=== PATIENT | male | born 1995 | race Caucasian/White ===

== ENCOUNTER 2016-04-16 09:20 | Emergency (ER) | payer BC, OTHER ==
[2016-04-16 09:39] VITALS: TEMP 98; BMI 23.7
[2016-04-16] MEDS ORDERED: ONDANSETRON 4 MG/2 ML VIAL IVPUSH ONE (09:51)
[2016-04-16] MEDS ORDERED: SODIUM CHLORIDE 1,000 ML IV STA (09:51)
[2016-04-16] MEDS ORDERED: DICYCLOMINE HCL 10 MG CAPSULE PO ONE (09:51)
[2016-04-16] MEDS ORDERED: ONDANSETRON 4 MG/2 ML VIAL ONE (10:10)
[2016-04-16] MEDS ORDERED: DICYCLOMINE HCL 10 MG CAPSULE ONE (10:10)
[2016-04-16 10:53] LABS: BASOPHIL 0.2 % (0-2.0); EOSINOPHIL 0.1 % (0-4.5); MCH 29.3 pg (25.7-33.7); MCHC 33.3 g/dl (32.0-35.9); MEAN PLT VOLUME 7.6 fl (7.5-11.1); NEUTROPHILS 93.3 % (42.8-82.8); PLATELET COUNT 272 K/MM3 (134-434); WHITE BLOOD COUNT 13.2 K/mm3 (4.0-10.0)
--- NOTE | 2016-04-16 11:03 | PDOC ---
History of Present Illness - History of Present Illness Initial Comments: 04/16/16 11:03 The patient is a 20 year old male with no past medical hx who presents to the ED complaining of abdominal pain and vomiting since this morning. The patient states his abdominal pain is localized in the RUQ and LLQ. He notes the pain is intermittent and worsens prior and during his vomiting episodes. He rates the pain as a 9/10 and describes the pain as achy. The patient states he has vomited 12 times and there appears to be blood in his vomit. The last time he ate was last night. He denies any recent travel, sick contacts, and change in diet. He reports headache, diarrhea, fever, chills The patient denies chest pain, SOB The patient denies back pain, dysuria, hematuria Allergies: NKDA Social: No toxic habits reported Surgical: None reported PCP: N/A <Diana Youngblood - Last Filed: 04/16/16 11:03> - General History Source: Patient Exam Limitations: No Limitations <Yuni Harmon - Last Filed: 04/19/16 10:10> - General Chief Complaint: Pain Stated Complaint: ABD PAIN, VOMITING BLOOD Time Seen by Provider: 04/16/16 09:43 Past History <Diana Youngblood - Last Filed: 04/16/16 11:03> - Past Medical History Other medical history: NONE - Psycho/Social/Smoking Cessation Hx Suicidal Ideation: No Smoking History: Never smoked Information on smoking cessation initiated: No Hx Alcohol Use: No Drug/Substance Use Hx: No Substance Use Type: None <Yuni Harmon - Last Filed: 04/19/16 10:10> - Past Medical History Allergies/Adverse Reactions: Allergies Allergy/AdvReac Type Severity Reaction Status Date / Time EGGPLANT Allergy Rash Uncoded 04/16/16 09:25 Home Medications: Ambulatory Orders Ondansetron HCl [Zofran] 4 mg PO BID PRN #14 tablet 04/16/16 Review of Systems - Review of Systems Able to Perform ROS?: Yes Comments:: 04/16/16 11:04 GENERAL/CONSTITUTIONAL: +Fever, chills. No: weakness, loss of appetite. HEAD, EYES, EARS, NOSE AND THROAT: No: change in vision, ear pain, discharge, sore throat, throat swelling. CARDIOVASCULAR: No: chest pain, lightheadedness, palpitations, syncope RESPIRATORY: No: cough, shortness of breath, wheezing, hemoptysis, stridor. GASTROINTESTINAL: +RUQ and LLQ abdominal pain, nausea, vomiting, diarrhea. No: rectal bleeding, constipation. GENITOURINARY: No: dysuria, hematuria, frequency, urgency, flank pain. MUSCULOSKELETAL: No: back pain, neck pain, joint pain, muscle swelling or pain SKIN: No: lesions, pallor, rash or easy bruising. NEUROLOGIC: +Headache. No: vertigo, paresthesias, weakness ENDOCRINE: No: unexplained weight gain or loss HEMATOLOGIC/LYMPHATIC: No: anemia, easy bleeding, swelling nodes <Diana Youngblood - Last Filed: 04/16/16 11:03> *Physical Exam - Vital Signs Last Vital Signs Temp Pulse Resp BP Pulse Ox 98.0 F 98 H 20 124/66 99 04/16/16 09:22 04/16/16 09:22 04/16/16 09:22 04/16/16 09:22 04/16/16 09:22 - Physical Exam Comments: 04/16/16 11:04 GENERAL: The patient is in no acute distress. HEAD: Normal with no signs of trauma. EYES: PERRLA, EOMI, sclera anicteric, conjunctiva clear. ENT: Ears normal, nares patent, oropharynx clear without exudates. Moist mucous membranes. NECK: Normal range of motion, supple without lymphadenopathy, JVD, or masses. LUNGS: Breath sounds equal, clear to auscultation bilaterally. No wheezes, and no crackles. HEART:Regular rate and rhythm, normal S1 and S2 without murmur, rub or gallop. ABDOMEN: +Tenderness to the RUQ and LLQ, No distention. Soft, normoactive bowel sounds. No guarding, no rebound. EXTREMITIES: Normal range of motion, no edema. No clubbing or cyanosis. No erythema, or tenderness. NEUROLOGICAL: Cranial nerves II through XII grossly intact. Normal speech. No focal neurological deficits. MUSCULOSKELETAL: Back nontender to palpation, no CVA tenderness SKIN: Warm, Dry, normal turgor, no rashes or lesions noted. <Diana Youngblood - Last Filed: 04/16/16 11:03> - Vital Signs Last Vital Signs Temp Pulse Resp BP Pulse Ox 98.0 F 98 H 20 124/66 99 04/16/16 09:22 04/16/16 09:22 04/16/16 09:22 04/16/16 09:22 04/16/16 09:22 <Yuni Harmon - Last Filed: 04/19/16 10:10> ED Treatment Course - LABORATORY CBC & Chemistry Diagram: 04/16/16 10:24 04/16/16 10:24 - ADDITIONAL ORDERS Additional order review: 04/16/16 10:24 RBC 5.09 MCV 88.0 MCHC 33.3 RDW 13.0 MPV 7.6 Neutrophils % 93.3 H Lymphocytes % 1.8 L Monocytes % 4.6 Eosinophils % 0.1 Basophils % 0.2 <Diana Youngblood - Last Filed: 04/16/16 11:03> - LABORATORY CBC & Chemistry Diagram: 04/16/16 10:24 04/16/16 10:24 - ADDITIONAL ORDERS Additional order review: 04/16/16 10:24 RBC 5.09 MCV 88.0 MCHC 33.3 RDW 13.0 MPV 7.6 Neutrophils % 93.3 H Lymphocytes % 1.8 L Monocytes % 4.6 Eosinophils % 0.1 Basophils % 0.2 <Yuni Harmon - Last Filed: 04/19/16 10:10> Medical Decision Making - Medical Decision Making 04/16/16 11:03 A portion of this note was documented by scribe services under my direction. I have reviewed the details of the note, within reason, and agree with the documentation with the following case summary and management plan written by me. Nursing documentation reviewed and incorporated into medical decision making 20 yo M presenting with Nausea, vomiting, diarrhea no fevers or chills No recent travel No ill contacts When he last vomited, he noted streaks of blood 04/16/16 11:58 Laboratory Tests 04/16/16 04/16/16 10:24 10:24 WBC 13.2 H Hgb 14.9 Hct 44.8 Plt Count 272 Neutrophils % 93.3 H Lymphocytes % 1.8 L Sodium 133 L Potassium 4.4 Chloride 104 Carbon Dioxide 26 Creatinine 1.0 Total Amylase 39 Lipase 72 L 04/16/16 12:34 Laboratory Tests 04/16/16 10:24 Total Bilirubin 1.3 H AST 26 ALT 34 Upon re assessment, pt has no abdominal tenderness Tolerated Gatorade but after drinking 2 cups, developed abdominal cramping and nausea Pt requesting to eat No fevers Pt mother states that he has red skin on both cheeks No other areas are noted with this erythema, I do not think this is an allergic reaction Pt will be discharged to home <Yuni Harmon - Last Filed: 04/19/16 10:10> *DC/Admit/Observation/Transfer - Attestations Scribe Attestion: 04/16/16 11:04 Documentation prepared by Diana Youngblood, acting as biomedical manager for Yuni Harmon MD/DO. <Diana Youngblood - Last Filed: 04/16/16 11:03> - Discharge Dispostion Admit: No <Yuni Harmon - Last Filed: 04/19/16 10:10> Diagnosis at time of Disposition: Gastroenteritis - Discharge Dispostion Disposition: HOME Condition at time of disposition: Improved - Prescriptions Prescriptions: Ondansetron HCl [Zofran] 4 mg PO BID PRN #14 tablet PRN Reason: Nausea - Patient Instructions Printed Discharge Instructions: DI for Viral Gastroenteritis -- Adult Additional Instructions: Kendall Thank you for coming in to the ER today Please eat small light meals Please monitor yourself for fevers Please monitor yourself for right lower abdominal tenderness Please take medications as prescribed Return to the ER for any other concerns or complaints - Post Discharge Activity Work/School Note: Back to Work
[2016-04-16 11:30] LABS: ALBUMIN 4.6 g/dl (3.4-5.0); AMYLASE 39 U/L (25-115); ANION GAP 3 (8-16); BILIRUBIN,TOTAL 1.3 mg/dL (0.2-1.0); CALCIUM 9.1 mg/dL (8.5-10.1); CO2 26 mmol/L (21-32); GLUCOSE,RANDOM 113 mg/dL (74-106); TOT PROT 7.9 g/dl (6.4-8.2)
[2016-04-16 12:12] VITALS: BP 137/58; PULSE 81
[2016-04-16 12:26] LABS: ALK PHOS 105 U/L (45-117); SGOT/AST 26 U/L (15-37); SGPT/ALT 34 U/L (12-78)
== END 2016-04-16 12:46 | disposition home or self-care (01) ==
LOC: JER 09:20
PROC: 3E033GC Introduction of Other Therapeutic Substance into Peripheral Vein, Percutaneous Approach (ICD-10-PCS; principal; 2016-04-16)
DX: K52.9 Noninfective gastroenteritis and colitis, unspecified (principal)
CPT/HCPCS: 36415; 80053; 82150; 83690; 85025; 99283-25

== ENCOUNTER 2016-05-01 08:32 | Emergency (ER) | payer BC, OTHER ==
[2016-05-01 08:36] VITALS: BP 121/47; PULSE 56; TEMP 97.5; BMI 24.4
--- NOTE | 2016-05-01 09:13 | PDOC ---
History of Present Illness - General Chief Complaint: Injury Stated Complaint: LT ANKLE SPRAIN Time Seen by Provider: 05/01/16 08:50 History Source: Patient - History of Present Illness Occurred: reports: other Severity: Yes: moderate Lower Extremity Pain Location: right: ankle Method of Injury: Yes: twisted Past History - Past Medical History Allergies/Adverse Reactions: Allergies Allergy/AdvReac Type Severity Reaction Status Date / Time EGGPLANT Allergy Rash Uncoded 05/01/16 08:36 Home Medications: Ambulatory Orders Ibuprofen [Motrin -] 400 mg PO Q6H #30 tablet 05/01/16 Other medical history: NONE - Psycho/Social/Smoking Cessation Hx Anxiety: No Suicidal Ideation: No Smoking History: Never smoked Hx Alcohol Use: No Drug/Substance Use Hx: No Substance Use Type: None Review of Systems - Review of Systems Musculoskeletal: Yes: Joint Pain, Joint Swelling *Physical Exam - Vital Signs Last Vital Signs Temp Pulse Resp BP Pulse Ox 97.5 F L 56 L 20 121/47 99 05/01/16 08:33 05/01/16 08:33 05/01/16 08:33 05/01/16 08:33 05/01/16 08:33 - Physical Exam General Appearance: Yes: Appropriately Dressed. No: Apparent Distress HEENT: positive: Normal Voice Neck: positive: Supple Respiratory/Chest: negative: Respiratory Distress Extremity: positive: Tender, Swelling Integumentary: positive: Dry, Warm Neurologic: positive: Fully Oriented, Alert, Normal Mood/Affect ED Treatment Course - RADIOLOGY Radiology Studies Ordered: Category Date Time Status ANKLE & FOOT-RIGHT* [RAD] Stat Radiology 05/01/16 08:53 Taken Medical Decision Making - Medical Decision Making 05/01/16 09:13 20-year-old male here with right ankle pain and swelling status post injury while playing basketball 2 days ago. Patient states he jumped in the air and twisted his ankle, denies fall. Patient in no apparent distress with diffuse swelling and tenderness to right ankle. Possibly sprain, rule out fracture. Pain control in ED 05/01/16 09:16 XR neg for fx. Colt applied and crutches given. Dc w/ pain control and ortho follow up as needed 05/01/16 09:19 *DC/Admit/Observation/Transfer Diagnosis at time of Disposition: Ankle sprain Qualifiers: Encounter type: initial encounter Involved ligament of ankle: unspecified ligament Laterality: right Qualified Code(s): S93.401A - Sprain of unspecified ligament of right ankle, initial encounter - Discharge Dispostion Disposition: HOME Condition at time of disposition: Good - Prescriptions Prescriptions: Ibuprofen [Motrin -] 400 mg PO Q6H #30 tablet - Referrals Referrals: Sundar Thomson MD [Staff Physician] - - Patient Instructions Printed Discharge Instructions: DI for Ankle Sprain Additional Instructions: Use Colt bandage for swelling, elevate extremity and take Motrin as needed for pain. If pain persist after 2 weeks please follow-up with Dr. Thomson, of orthopedics
== END 2016-05-01 09:32 | disposition home or self-care (01) ==
LOC: JERFT 08:32
DX: S93.401A Sprain of unspecified ligament of right ankle, initial encounter (principal); X50.1XXA Overexertion from prolonged static or awkward postures, initial encounter; Y93.67 Activity, basketball; Y92.310 Basketball court as the place of occurrence of the external cause; Y99.8 Other external cause status
CPT/HCPCS: 73610-TC-RT; 73630-TC-RT; 99281-25